=== PATIENT | female | born 1940 | race Caucasian/White ===

== ENCOUNTER → 2016-11-14 | Outpatient (CLI) | payer MEDICAID, OTHER | END | disposition home or self-care (01) | LOC: CARD 07:40 | PROVIDERS: ATTEND Student in an Organized Health Care Education/Training Program | DX: G62.9 Polyneuropathy, unspecified (principal); S84.91XA Injury of unspecified nerve at lower leg level, right leg, initial encounter; X58.XXXA Exposure to other specified factors, initial encounter; Y93.89 Activity, other specified; Y92.89 Other specified places as the place of occurrence of the external cause; Y99.8 Other external cause status | CPT/HCPCS: 95885; 95909 ==